=== PATIENT | male | born 1985 | race Caucasian/White ===

== ENCOUNTER → 2020-10-18 | Outpatient (CLI) | payer OTHER ==
[2020-10-18 11:47] LABS: PROLACTIN 4.4 NG/ML (2.1-17.7); THYROID STIMULATING HORMONE 0.908 uIU/ML (0.358-3.740)
[2020-10-18 11:48] LABS: LUTEINIZING HORMONE 3.9 mIU/mL (1.5-9.3)
== END ==
LOC: M LAB 10:29
PROVIDERS: ATTEND Specialist
DX: N46.9 Male infertility, unspecified (principal)

== ENCOUNTER → 2020-10-18 | Outpatient (REF) | payer OTHER ==
[2020-10-18 10:23] LABS: SEMEN APPEARANCE OPAQUE (OPAQUE); SEMEN VOLUME 2.2 ml (2.0-5.0)
[2020-10-18 10:24] LABS: SEMEN VISCOSITY VISCOUS (LIQUID); SPERM CONCENTRATION 8.3 M/ml (>=15.0); WBC CONCENTRATION >1 M/ml (<=1 M/ml)
== END ==
LOC: M LAB REF 09:37
PROVIDERS: ATTEND Specialist
DX: N46.9 Male infertility, unspecified (principal)